=== PATIENT | male | born 1945 | race Caucasian/White ===

== ENCOUNTER → 2020-01-22 10:50 | Outpatient (BNVA) | payer MEDICARE, OTHER, SELFPAY | PROVIDERS: PCP Family Medicine; Referring Provider Family Medicine; Visit Provider Nurse Practitioner Gerontology | DX: N52.9 Male erectile dysfunction, unspecified (principal); N40.1 Benign prostatic hyperplasia with lower urinary tract symptoms; N13.8 Other obstructive and reflux uropathy | CPT/HCPCS: 81003; 99204; 99215 ==

== ENCOUNTER 2020-01-22 13:16 | Outpatient (REF) | payer MEDICARE, SELFPAY ==
[2020-01-22 14:04] LABS: Bilirubin Negative (Negative); Blood Negative (Negative); Clarity Clear (Clear); Glucose Negative (Negative); Ketones Negative (Negative); Leukocyte Esterase Negative (Negative); Nitrite Negative (Negative); Urobilinogen 0.2 EU/dL (Up TO 0.2)
== END 2020-01-22 13:36 ==
LOC: LBN 13:16
PROVIDERS: PCP Nurse Practitioner Acute Care; Visit Provider Nurse Practitioner Gerontology
DX: R31.9 Hematuria, unspecified (principal)
CPT/HCPCS: 81003

== ENCOUNTER → 2020-04-04 11:43 | Outpatient (BNVA) | payer MEDICARE, OTHER, SELFPAY | PROVIDERS: PCP Nurse Practitioner Acute Care; Referring Provider Nurse Practitioner Acute Care; Visit Provider Nurse Practitioner Gerontology | DX: N40.1 Benign prostatic hyperplasia with lower urinary tract symptoms (principal); N13.8 Other obstructive and reflux uropathy; N52.9 Male erectile dysfunction, unspecified; N40.2 Nodular prostate without lower urinary tract symptoms | CPT/HCPCS: 99213; 99442 ==

== ENCOUNTER → 2020-06-10 11:09 | Outpatient (BNVA) | payer MEDICARE, OTHER, SELFPAY | PROVIDERS: PCP Nurse Practitioner Acute Care; Referring Provider Nurse Practitioner Acute Care; Visit Provider Nurse Practitioner Gerontology | DX: N40.1 Benign prostatic hyperplasia with lower urinary tract symptoms (principal); N13.8 Other obstructive and reflux uropathy; N40.2 Nodular prostate without lower urinary tract symptoms; N52.9 Male erectile dysfunction, unspecified; I10 Essential (primary) hypertension | CPT/HCPCS: 99213 ==

== ENCOUNTER 2021-02-20 02:03 | Outpatient (CLI) | payer MEDICARE, OTHER, SELFPAY ==
--- NOTE | 2021-02-20 | DI.CT_ITS ---
EXAM: CT ABDOMEN PELVIS WO/W CLINICAL HISTORY: GROSS HEMATURIA,R31.0. TECHNIQUE: Imaging Protocol: Axial computed tomography images with coronal and sagittal reformatted images were created and reviewed CONTRAST MATERIAL: Intravenous: Omnipaque 100cc Oral: None COMPARISON: No exams were available for comparison FINDINGS: VISUALIZED LUNG BASES: Mild platelike atelectasis in the left lung base. No pleural effusions.. ABDOMEN: There is no ascites. LIVER: There is a small 6 millimeters cyst in the lateral aspect of the right hepatic lobe. No other significant focal hepatic findings. No dilatation of intrahepatic ducts. GALLBLADDER/BILIARY: There is a calcified gallstone in the lower gallbladder lumen measuring 1.6 by 1 .5 cm. There is no obvious gallbladder wall edema. The CBD is not dilated but there is a 6 by 4 by 7 millimeter calcification in the pancreatic head area a in the lower CBD region at its junction with the duodenal wall. Skull to determine if this is actually within the lower most CBD or adjacent to it. PANCREAS: Slight haziness the pancreatic head. Remainder of the pancreas appears unremarkable. Panc reatic duct is not dilated. There are no peripancreatic fluid collections. SPLEEN: Spleen is not enlarged. No obvious intrasplenic lesions. Splenic and portal veins are paten t. ADRENALS: There are no significant adrenal masses. KIDNEYS:No cysts evident. No solid renal masses. No calculi nor hydronephrosis.. ABDOMINAL AORTA: Abdominal aorta is not enlarged. However, there is arterial megaly of the left comm on iliac artery which exhibits a luminal diameter of 1.7 cm with no stenosis in either common iliac a rtery. External iliac arteries are patent as are the common femoral arteries. LYMPH NODES:There is no retroperitineal nor paraaortic adenopathy. ABDOMINAL WALL/GI: There is a left inguinal fat containing hernia. Does not contain bowel loops. No bowel obstruction. No bowel obstruction. PELVIS: GI: No evidence of appendicitis.No evidence of sigmoid diverticulitis. LYMPH NODES: There is no intrapelvic nor inguinal adenopathy. REPRODUCTIVE: Prostate enlarged. URINARY BLADDER: There is an ominous noncalcified mass in the right side of the urinary bladder which measures 3 centimetres AP by 2.3 cm wide by 2.2 cm craniocaudal. Consistent with probable neoplasm. The ipsilateral ureter is not dilated. OSSEOUS: No significant osseous lesions. IMPRESSION: 1. There is a concerning noncalcified neoplastic-appearing mass in the right side of the urinary blad alaina measuring approximately 3 x 2.3 x 2.2 cm. There is no extra vesicular extension a nor perivesicu lar lymphadenopathy and there is no adenopathy elsewhere in the abdomen and pelvis. No ascites. 2. No significant masses in the kidneys. No hydronephrosis. 3. Cholelithiasis. No evidence of acute cholecystitis. The CBD is not dilated but there is a 6 x 4 x 7 millimeter calcification at the level the pancreatic head in the vicinity of the CBD. It is diff icult to determine if this is actually with in the lower most CBD or within the immediately adjacent pancreatic head parenchyma. Correlation with appropriate blood work recommended. If clinically indicated MRCP/MRI can be performed. May add specificity. 4. There is a solitary small 6 millimeter benign intrahepatic cyst. RADIATION DOSE DELIVERED: 2,886.23mGy.cm Total DLP DATA REPOSITORY: All CT scans at this facility are submitted to the National Radiology Data Registry (NRDR) Dose Index Registry (DIR) with the [employer] (ACR). RADIATION OPTIMIZATION: All CT scans at this facility use at least one of these dose optimization te chniques: automated exposure control; mA and/or kV adjustment per patient size (includes targeted exa ms where dose is matched to clinical indication); or iterative reconstruction.
[2021-02-20] MEDS: Normal Saline - Diluent 50 ML VIAL IV ×2 (13:33→13:34)
[2021-02-20] MEDS: Omnipaque 350 MG/ML 100 ML BTL IJ (13:33)
== END 2021-02-20 02:23 ==
PROVIDERS: PCP Nurse Practitioner Acute Care; Visit Provider Nurse Practitioner Acute Care
DX: R31.0 Gross hematuria (principal); N32.89 Other specified disorders of bladder; K80.20 Calculus of gallbladder without cholecystitis without obstruction; K76.89 Other specified diseases of liver; K86.89 Other specified diseases of pancreas
CPT/HCPCS: 74178; J3490

== ENCOUNTER → 2021-02-24 14:47 | Outpatient (BNVA) | payer MEDICARE, OTHER, SELFPAY | PROVIDERS: PCP Nurse Practitioner Acute Care; Referring Provider Nurse Practitioner Acute Care; Visit Provider Nurse Practitioner Gerontology | DX: N40.3 Nodular prostate with lower urinary tract symptoms (principal); R39.15 Urgency of urination; R31.0 Gross hematuria; R35.1 Nocturia | CPT/HCPCS: 99215 ==

== ENCOUNTER 2021-02-28 02:45 | Outpatient (CLI) | payer MEDICARE, OTHER, SELFPAY ==
[2021-02-28 12:01] LABS: Source Nasal/Nares
[2021-02-28 16:48] LABS: COVID-19 PCR Negative (Negative)
== END 2021-02-28 02:46 | disposition home or self-care (01) ==
LOC: LBO 02:45
PROVIDERS: Urology; PCP Nurse Practitioner Acute Care; Visit Provider Nurse Practitioner Gerontology
DX: Z20.822 Contact with and (suspected) exposure to COVID-19 (principal)
CPT/HCPCS: 87635

== ENCOUNTER 2021-03-03 06:05 | Observation (INO) | payer MEDICARE, OTHER, SELFPAY ==
[2021-03-03] VITALS (9 sets, daily range): BP systolic 126–147; BP diastolic 73–87; PULSE 55–75; RESP 11–22; TEMP 35.8–36.8; O2SAT 95–99
--- NOTE | 2021-03-03 06:56 | HPE_ITS ---
Date of service: 03/03/21 Time of Service: 06:56 Assessment and Plan Assessment and plan (1) Bladder mass: Status: Acute Assessment and plan: For cystoscopy with TURBT. We will be prepared to keep him in the hospital overnight for continuous bladder irrigation. History of Present Illness History of Present Illness Chief Complaint: Bladder mass Narrative: Joo is 75-year-old male known to urology for his prior visits in relationship to his BPH, ED, and his abnormal prostate exam. His PCP reached out a few weeks ago about this individual having gross hematuria. Our recommendations were to have an abdominal pelvic CT with and without contrast. Patient is here today to discuss those results. Joo explains that he he approximately a month ago started to have gross hematuria. He notes that it was not bad but sometimes he has some brown urine. He notes that he is never had clots. He does state that approximately 2 weeks ago he had an episode of gross hematuria with every void on the weekend and said it was really bad. He notes that he can void and empty completely. He does have some LUTS with some frequency and urgency. He denies any weight loss. He does state he has lower pelvic discomfort but no skeletal pains. He also denies abnormal bleeding or bruising. Review of Systems Narrative: No fevers or chills No vision change or dysphasia No diabetes or thyroid No shortness of breath, cough or hemoptysis No chest pain No nausea, vomiting, hepatitis, ulcers, jaundice No seizures, strokes or peripheral neuropathy No bleeding disorders or anemia No gout [facility] Medical History Anxiety Arthritis Bladder mass Chronic pain Depression Essential hypertension Gynecomastia Hypertriglyceridemia Irregular heart beat Low back pain Osteoporosis Smoker Varicose veins of left lower extremity Vascular disorder Surgical History Arthroplasty of knee Hernia repair Quadracepsplasty Replacement of total knee joint Rotator Cuff Repair Vasectomy Vein Stripping Family History (Updated 04/06/17 @ 13:04 by Ellie Goff MD) Other ASCVD (arteriosclerotic cardiovascular disease) Bladder cancer Lung cancer Myocardial infarction Social History Smoking/Tobacco Use Status: Former Tobacco Use Smoking risk assessment performed?: Yes Drug use: Never Current gender identity: male Meds Home Medications and Allergies Allergies Allergy/AdvReac Type Severity Reaction Status Date / Time No Known Allergies Allergy Unverified 11/30/13 09:11 Home Medications Medication Instructions Recorded Confirmed Type ascorbic acid (vitamin C) [Vitamin 500 mg PO DAILY NS 04/06/17 03/03/21 History C] cholecalciferol (vitamin D3) 400 unit PO DAILY NS 04/06/17 03/03/21 History [Vitamin D3] multivitamin 1 ea PO DAILY NS 04/06/17 03/03/21 History sertraline 200 mg PO DAILY tab-cap NS 04/06/17 03/03/21 History trazodone 150 mg PO HS tab-cap NS 04/06/17 03/03/21 History triamcinolone acetonide 15 gm TOPICAL PRN PRN script NS 04/06/17 03/03/21 History vitamin E succinate 100 unit PO DAILY NS 04/06/17 03/03/21 History ammonium lactate 12 % topical cream 1 applic TP BID 12/20/19 02/24/21 History calcium carbonate 600 mg calcium 600 mg PO DAILY 12/20/19 03/03/21 History (1,500 mg) tablet cephalexin 500 mg capsule 500 mg PO DAILY cap 12/20/19 03/03/21 History ciclopirox 8 % topical solution 1 applic TP QHS 12/20/19 03/03/21 History econazole 1 % topical cream 1 applic TP BID 12/20/19 03/03/21 History efinaconazole 10 % topical 1 applic TP DAILY 12/20/19 03/03/21 History solution with applicator sildenafil 50 mg tablet 50 mg PO DAILY PRN 12/20/19 03/03/21 History vitamin B12 500 mcg-folic acid 400 1 tab PO DAILY 12/20/19 03/03/21 History mcg tablet prazosin 2 mg capsule 3 mg PO QHS cap 01/22/20 03/03/21 History acetaminophen 1,000 mg PO Q6H PRN 02/27/21 03/03/21 History ferrous sulfate [Iron (ferrous 325 mg PO DAILY 02/27/21 03/03/21 History sulfate)] Exam Const General: cooperative, comfortable and no acute distress Other: very talkative Neck Neck: supple Resp Effort & Inspection: normal respiratory effort Auscultation: clear to auscultation bilaterally Cardio Rate: regular rate Rhythm: regular rhythm GI Inspection: normal to inspection Palpation: soft Neuro General: patient alert, patient awake and patient oriented x3 Results Last Vital Signs Temp 36.8 C 03/03/21 06:21 Pulse 75 03/03/21 06:21 Resp 16 03/03/21 06:21 BP 126/73 03/03/21 06:21 Pulse Ox 95 03/03/21 06:21 COVID-19 Screening Have you, or household traveled for leisure in last 14 days?: No Had IN PERSON contact w/suspected or confirmed C-19 person: No
[2021-03-03] MEDS: Lactated Ringers 1,000 ML 80 ML IV ×3 (07:05→21:12)
[2021-03-03] MEDS: ceFAZolin 2 GM/50 ML BAG IVPB (07:31)
--- NOTE | 2021-03-03 07:59 | BLADDER_PTH ---
PATIENT: Joo Bradley LOC: U#:[id number] AGE/SX: 75/M [facility]: Jona Barker MD : 1945 BED: A DIS: 03/04/2021 SPEC #: [id number] RECD: 03/03/21 12:34 STATUS: SOUJonah REQ #: [id number] VINICIO: 03/03/21 07:[address]: Jona Barker DEPT: Surgical Specimen RECD BY: Marleni Zuniga ENTERED: 03/03/21 12:34 SP TYPE: Bladder OTHR DR: Sohail Tan Tissues: 1 - BLADDER CURRETTINGS Procedures: GROSS AND MICRO LEVEL 5 Comments: [id number]
[2021-03-03] MEDS: Lidocaine 2% Jelly 11 ML SYR (08:06)
--- NOTE | 2021-03-03 08:27 | W.PM.OP ---
Date of service: 03/03/21 Time of Service: 08:28 Operative Note Operative Note DATE OF PROCEDURE: 03/03/21 PRE-OP DIAGNOSIS: Bladder mass POST-OP DIAGNOSIS: same PROCEDURE: cystoscopy, TURBT (2 to 5 cm) SURGEON: Jona Barker ANESTHESIA TYPE: General:No Airway Refer to Anesthesia Record ESTIMATED BLOOD LOSS: 100 PATHOLOGY: other (bladder tumor) COMPLICATIONS: None Patient was transported to: PACU Patient's condition: stable Implants: 22 Indonesian Hematuria catheter with 30 cc in balloon Indications: This is a 75-year-old gentleman who presented with gross hematuria. He was evaluated with a CT urogram which demonstrated a mass within the bladder. He presents for transurethral resection of a bladder mass. Findings: Papillary lesion measuring @ 4 cm on right anterior bladder wall Procedure Description: He was brought to the operating room on 03/03/2021. After successful induction of general anesthesia without intubation, he was placed in the dorsal lithotomy position. His genitalia was prepped and draped sterilely. He was given preoperative IV antibiotics. 2% Xylocaine jelly was instilled into the urethra to act as a local anesthetic. A 26 Indonesian resectoscope sheath was passed through the urethra into the bladder. We used a visual obturator to inspect the urethral and prostatic mucosa. The pendulous, bulbous and membranous urethra all appeared normal with no strictures. The prostatic urethra showed lateral lobe enlargement but no papillary lesions on the mucosa. The bladder neck was entered and the bladder was then inspected using the 30 degree lens. Both ureteral orifices appeared normal in configuration and location. Clear urine was seen coming from each side. On the right anterior bladder wall, a papillary lesion was seen. The lesion measured approximately 4 cm in largest dimension. No additional lesions were identified. We then used the [employer] resectoscope and bipolar cautery to resect the visible tumor. All resected tissue was evacuated and sent to pathology for permanent section. The base of the resection site was then cauterized using coagulation current. At the completion of the resection, no active arterial bleeding was identified. The bladder was filled with irrigant. The resectoscope was removed. A 22 Indonesian hematuria catheter was then passed through the urethra into the bladder. The catheter balloon was inflated with 30 cc of sterile water. The catheter was hooked to gravity drainage. Continuous bladder irrigation with saline was begun. Bimanual exam under anesthesia showed a mobile bladder with no pelvic wall fixation. He tolerated this procedure well. He was taken to the recovery room in stable condition.
--- NOTE | 2021-03-03 11:35 | NUR.NOTE ---
Nursing Note: Pt A&Ox3, VSS, admitted to [address] with irrigation running. Pt denies pain. Oriented to room, call ramirez system. alarms on.
[2021-03-03] MEDS: ceFAZolin 1 GM/50 ML BAG IVPB ×2 (14:34→21:52)
[2021-03-03] MEDS: Acetaminophen 325 MG TAB 650 MG PO (14:39)
--- NOTE | 2021-03-03 14:43 | CHAPLAIN ---
Joo was resting in bed. He's from [place] and this is his first time in [facility]. Usually he goes [facility] or the [place]. He said he has received good care here. He has a twin brother, who lives in [facility], has been treated recently for bladder cancer, and Joo said it will take a few days to get the test results back. Joo lives close to her sister and has been helping her out as she's in treatment for cancer. Joo was very pleasant and talked about graduating from [employer] with a small class.
[2021-03-03] MEDS: Docusate Sodium 100 MG CAP PO (20:46)
[2021-03-03] MEDS: Prazosin 1 MG CAP 3 MG PO (21:11)
[2021-03-03] MEDS: traZODone 50 MG TAB 150 MG PO (21:12)
[2021-03-04 04:00] VITALS: BP 118/74; PULSE 56; RESP 16; TEMP 36.9; O2SAT 96
--- NOTE | 2021-03-04 07:32 | W.PM.DS.N ---
Date of service: 03/04/21 Time of Service: 07:32 DS: Diagnosis Discharge Diagnosis (1) Bladder mass: Status: Acute (2) S/P bladder tumor excision with fulguration: Status: Acute Discharge Plan Disposition Patient Disposition: HOME Condition: Stable Discharge Details Reason For Visit: BLADDER MASS Admit Date/Time: 03/03/21 06:05 Admit Provider: Jona Barker Attending Provider: Jona Barker Primary Care Provider: Sohail Tan Hospital Course Hospital Course: The patient was admitted on 03/03/2021. He was brought to the operating room where he underwent cystoscopy. A papillary mass was found on the right side of the bladder. He underwent transurethral resection of the visible lesion. Because of the depth of the resection, we elected not to place mitomycin-C into his bladder in the perioperative time. He was maintained in the hospital overnight with continuous bladder irrigation. He required hand irrigation on one occasion. For the remainder of the time, his irrigant was clear and flowed freely. On postoperative day #1, he was comfortable and afebrile. His lab work including his renal function and hemoglobin were stable. His bladder irrigation was discontinued and he is being discharged to home with a Pereyra catheter in place. He will follow-up later this week for catheter removal and in 2 weeks to review his surgical pathology. Home Meds and New Rx's Prescriptions: No Action prazosin [Minipress] 2 mg capsule 3 mg PO QHS RF: 0 sertraline 100 MG tablet 200 mg PO DAILY RF: 0 triamcinolone acetonide 15 GM cream 15 gm Topical PRN PRNRF: 0 trazodone 150 MG tablet 150 mg PO HS RF: 0 ascorbic acid (vitamin C) [Vitamin C] 500 MG capsule, extended release 500 mg PO DAILY RF: 0 multivitamin 1 EACH capsule 1 ea PO DAILY RF: 0 cholecalciferol (vitamin D3) [Vitamin D3] 400 UNIT capsule 400 unit PO DAILY RF: 0 vitamin E succinate 100 UNIT tablet 100 unit PO DAILY RF: 0 ammonium lactate 12 % cream 1 applic TP BID RF: 0 calcium carbonate [Calcium 600] 600 mg calcium (1,500 mg) tablet 600 mg PO DAILY RF: 0 cephalexin 500 mg capsule 500 mg PO DAILY RF: 0 ciclopirox 8 % solution 1 applic TP QHS RF: 0 econazole 1 % cream 1 applic TP BID RF: 0 Jublia 10 % solution with applicator 1 applic TP DAILY RF: 0 sildenafil [Viagra] 50 mg tablet 50 mg PO DAILY PRNRF: 0 vitamin S32-ogfen acid 500-400 mcg tablet 1 tab PO DAILY RF: 0 ferrous sulfate [Iron (ferrous sulfate)] 325 mg (65 mg iron) Tablet 325 mg PO DAILY RF: 0 acetaminophen 500 mg Tablet 1,000 mg PO Q6H PRNRF: 0 Discharge Instructions Instructions: Pereyra Catheter Placement and Care (DC), Urinary Leg Bag (GEN), Transurethral Prostatectomy (DC) Additional Instructions: Pereyra to leg bag with catheter plug to irrigation port Follow-up or Wednesday for catheter removal Follow-up appointment with me in 2 weeks to review surgical pathology Okay to shower No new medications-May take [id number] Tylenol and ibuprofen for discomfort Stand Alone Forms: Nursing Discharge Form Referrals: Jona Barker MD [ [facility] STAFF PHYSICIAN] - 03/07/21 8:00 am (Follow-up appointment with me in 2 weeks to review surgical pathology will be 03/21/2021 @ 1100am) Activity:: No lifting over 20 pounds Equipment/Supplies:: Pereyra to leg bag Diet:: As Tolerated Discharge Orders Discharge Orders: Discharge Order (Routine); Ordered 03/04/21 Ordered By: Jona Barker Discharge Data Discharge Date/Time-TO BE ENTERED AT DEPARTURE: 03/04/21 09:47 DS: Summary Time Spent with Patient providing and/or coordinating discharge services: Less than 30 minutes Status at Discharge Functional status at discharge: independent ambulation Overall status at discharge: patient is back to baseline Mental Status: mental status grossly normal Speech and Movement: speech and movement normal Mood: congruent mood Affect: normal affect Exam Narrative Exam Narrative: On the morning of urgent, he looked well. He did not appear septic or toxic His vital signs are documented elsewhere His lungs are clear Cardiac exam shows a regular rate and rhythm His abdomen is soft with no masses His urine is clear in his catheter tubing He is awake and alert Psych Mental Status: mental status grossly normal Speech and Movement: speech and movement normal Mood: congruent mood Affect: normal affect DS: Data Vitals/I&O Vitals and I&O: Vital Signs Temperature 36.9 C 03/04/21 04:00 Temperature Source Temporal Artery Scan 03/04/21 04:00 Pulse 56 L 04/06/21 04:00 Pulse Rhythm Regular 03/04/21 04:44 Respiratory Rate 16 03/04/21 04:00 Respiratory Effort Non-Labored 03/04/21 04:44 Respiratory Depth Normal 03/04/21 04:44 Respiratory Pattern Normal 03/04/21 04:44 Blood Pressure 118/74 03/04/21 04:00 Pulse Oximetry 96 03/04/21 04:00 Respiratory End-tidal CO2 36 03/03/21 09:00 Oxygen Delivery Method Room Air 03/04/21 04:00 Oxygen Flow Rate 0 03/04/21 04:00 Pain Level 0 03/04/21 04:00 Intake & Output 03/03/21 03/03/21 03/04/21 11:59 23:59 11:59 Intake Total 595.333 / 2096.000 1500.667 / 2096.000 816 / 816 Balance 595.333 / 2096.000 1500.667 / 2096.000 816 / 816 Weight 91.6 kg Intake: IV 595.333 / 0728.939 8491.667 / 1756.000 816 / 816 Oral 340 / 340 Other: Urine Color Pale Pale Urine Appearance Clear Hematuria Clear Comment Drainage clear, no clots at this time. fluid in catheter is clear, light pink in the collection bucket. Emesis Description None Data Completed and Pending Labs on day of discharge: Labs from last 24 hours 03/04/21 03/04/21 05:35 05:35 WBC Pending RBC Pending Hgb Pending Hct Pending MCV Pending MCH Pending MCHC Pending RDW Pending Plt Count Pending MPV Pending Sodium Pending Potassium Pending Chloride Pending Carbon Dioxide Pending Anion Gap Pending BUN Pending Creatinine Pending Estimated GFR/1.73 m2 Pending Glucose Pending Calcium Pending PFSH Medical History Anxiety Arthritis Bladder mass Chronic pain Depression Essential hypertension Gynecomastia Hypertriglyceridemia Irregular heart beat Low back pain Osteoporosis Smoker Varicose veins of left lower extremity Vascular disorder Surgical History (Updated 03/04/21 @ 07:33 by Jona Barker MD) Arthroplasty of knee Hernia repair Quadracepsplasty Replacement of total knee joint Rotator Cuff Repair S/P bladder tumor excision with fulguration Vasectomy Vein Stripping Family History Other ASCVD (arteriosclerotic cardiovascular disease) Bladder cancer Lung cancer Myocardial infarction Social History Smoking/Tobacco Use Status: Former Tobacco Use Smoking risk assessment performed?: Yes Drug use: Never Current gender identity: male
[2021-03-04 07:47] VITALS: BP 122/70; PULSE 55; RESP 18; TEMP 36.6; O2SAT 96
[2021-03-04 07:48] LABS: HCT 39.1 % (40.0-50.0); HGB 13.2 g/dL (13.5-17.5); MCH 31.7 pg (27.0-33.0); MCHC 33.8 % (32.0-36.0); MCV 93.8 fL (80-95); MPV 10.5 fL (8.0-11.0); Platelet Count 161 10^3/uL (130-400); RBC 4.17 10^6/uL (4.36-5.78); RDW 13.1 % (11.8-14.1); RDW-SD 44.9 fL; WBC 8.56 10^3/uL (4.4-10.8)
[2021-03-04 08:08] LABS: Anion Gap 6.6 mmol/L (3-11); BUN 20 mg/dL (7-18); CO2 29.4 mmol/L (21.0-32.0); CREATININE 0.9 mg/dL (0.70-1.30); Calcium 9.1 mg/dL (8.5-10.1); Chloride 107 mmol/L (98-107); Glucose 102 mg/dL (74-106); Potassium 4.1 mmol/L (3.5-5.1); Sodium 143 mmol/L (136-145)
[2021-03-04] MEDS: Calcium Carbonate 1.5 GM TAB PO (08:53)
[2021-03-04] MEDS: Cholecalciferol (Vitamin D3) 400 UNIT TAB PO (08:53)
[2021-03-04] MEDS: Ascorbic Acid 500 MG TAB PO (08:53)
[2021-03-04] MEDS: Folic Acid 1 MG TAB 0.5 MG PO (08:53)
[2021-03-04] MEDS: Acetaminophen 325 MG TAB 650 MG PO (08:53)
[2021-03-04] MEDS: Multivitamin TAB 1 TAB PO (08:53)
[2021-03-04] MEDS: Sertraline 50 MG TAB 200 MG PO (08:53)
[2021-03-04] MEDS: Docusate Sodium 100 MG CAP PO (08:54)
[2021-03-04] MEDS: Cyanocobalamin 500 MCG TAB PO (08:54)
--- NOTE | 2021-03-04 10:31 | CMPROGNOTE_ITS ---
- If Service Date Differs Date of service: 03/04/21 Time of Service: 10:31 Care Management Progress Note Joo will be discharged home to his home in [place] with a lugo catheter with no new services. He will follow up with Urology later this week to have the lugo removed and again in 2 weeks to review surgical/pathology findings. He will also follow up with his PCP and discharge plan of care. Joo was discharged before was able to meet with him with plans to drive himself home.
== END 2021-03-04 09:47 | disposition home or self-care (01) ==
LOC: PDS 09:33 → MS 09:34
PROVIDERS: Admitting Provider Urology; PCP Nurse Practitioner Acute Care; Visit Provider Urology
PROC: 0TBB8ZZ Excision of Bladder, Via Natural or Artificial Opening Endoscopic (ICD-10-PCS; CPT 52235; principal; 2021-03-03 07:30)
DX: C67.9 Malignant neoplasm of bladder, unspecified (principal); N32.89 Other specified disorders of bladder; R31.0 Gross hematuria; F41.9 Anxiety disorder, unspecified; F32.9 Major depressive disorder, single episode, unspecified; I10 Essential (primary) hypertension; E78.1 Pure hyperglyceridemia; M54.5 Low back pain; M81.0 Age-related osteoporosis without current pathological fracture; F17.210 Nicotine dependence, cigarettes, uncomplicated; I83.92 Asymptomatic varicose veins of left lower extremity
CPT/HCPCS: 52235; 36415; 80048; 85027; 99238; NC; 88307; G0378; J0690; J1100; J1885; J2405; J2704; J3490

== ENCOUNTER → 2021-03-21 10:38 | Outpatient (BNVA) | payer MEDICARE, OTHER, SELFPAY | PROVIDERS: PCP Nurse Practitioner Acute Care; Referring Provider Nurse Practitioner Acute Care; Visit Provider Urology | DX: C67.9 Malignant neoplasm of bladder, unspecified (principal) | CPT/HCPCS: 99213 ==

== ENCOUNTER → 2021-04-17 08:39 | Outpatient (BNVA) | payer MEDICARE, OTHER, SELFPAY | PROVIDERS: PCP Nurse Practitioner Acute Care; Referring Provider Nurse Practitioner Acute Care; Visit Provider Nurse Practitioner Gerontology | DX: C67.9 Malignant neoplasm of bladder, unspecified (principal) | CPT/HCPCS: 51720; 81003; J9030 ==

== ENCOUNTER → 2021-04-24 08:45 | Outpatient (BNVA) | payer MEDICARE, OTHER, SELFPAY | PROVIDERS: PCP Nurse Practitioner Acute Care; Referring Provider Nurse Practitioner Acute Care; Visit Provider Nurse Practitioner Gerontology | DX: C67.9 Malignant neoplasm of bladder, unspecified (principal); N39.0 Urinary tract infection, site not specified | CPT/HCPCS: 81003 ==

== ENCOUNTER 2021-04-24 12:07 | Outpatient (REF) | payer MEDICARE, OTHER, SELFPAY | END 2021-04-24 12:08 | disposition home or self-care (01) | LOC: LBN 12:07 | PROVIDERS: PCP Nurse Practitioner Acute Care; Visit Provider Nurse Practitioner Gerontology | DX: N39.0 Urinary tract infection, site not specified (principal) | CPT/HCPCS: 87077; 87086 ==

== ENCOUNTER → 2021-05-01 08:37 | Outpatient (BNVA) | payer MEDICARE, OTHER, SELFPAY | PROVIDERS: PCP Nurse Practitioner Acute Care; Referring Provider Nurse Practitioner Acute Care; Visit Provider Nurse Practitioner Gerontology | DX: C67.9 Malignant neoplasm of bladder, unspecified (principal); Z51.11 Encounter for antineoplastic chemotherapy | CPT/HCPCS: 51720; 81003; J9030 ==

== ENCOUNTER → 2021-05-08 12:47 | Outpatient (BNVA) | payer MEDICARE, OTHER, SELFPAY | PROVIDERS: PCP Nurse Practitioner Acute Care; Referring Provider Nurse Practitioner Acute Care; Visit Provider Nurse Practitioner Gerontology | DX: C67.9 Malignant neoplasm of bladder, unspecified (principal); Z51.11 Encounter for antineoplastic chemotherapy | CPT/HCPCS: 51720; 81003; J9030 ==

== ENCOUNTER → 2021-05-15 09:46 | Outpatient (BNVA) | payer MEDICARE, OTHER, SELFPAY | PROVIDERS: PCP Nurse Practitioner Acute Care; Referring Provider Nurse Practitioner Acute Care; Visit Provider Nurse Practitioner Gerontology | DX: C67.9 Malignant neoplasm of bladder, unspecified (principal); Z51.11 Encounter for antineoplastic chemotherapy | CPT/HCPCS: 51720; 81003; J9030 ==

== ENCOUNTER → 2021-05-22 09:43 | Outpatient (BNVA) | payer MEDICARE, OTHER, SELFPAY | PROVIDERS: PCP Nurse Practitioner Acute Care; Referring Provider Nurse Practitioner Acute Care; Visit Provider Nurse Practitioner Gerontology | DX: C67.9 Malignant neoplasm of bladder, unspecified (principal); Z51.11 Encounter for antineoplastic chemotherapy | CPT/HCPCS: 51720; 81003; J9030 ==

== ENCOUNTER → 2021-05-29 08:42 | Outpatient (BNVA) | payer MEDICARE, OTHER, SELFPAY | PROVIDERS: PCP Nurse Practitioner Acute Care; Referring Provider Nurse Practitioner Acute Care; Visit Provider Nurse Practitioner Gerontology | DX: C67.9 Malignant neoplasm of bladder, unspecified (principal); Z51.11 Encounter for antineoplastic chemotherapy | CPT/HCPCS: 51720; 81003; J9030 ==

== ENCOUNTER → 2021-07-22 12:41 | Outpatient (BNVA) | payer MEDICARE, OTHER, SELFPAY | PROVIDERS: PCP Family Medicine; Referring Provider Nurse Practitioner Acute Care; Visit Provider Urology | DX: C67.9 Malignant neoplasm of bladder, unspecified (principal); Z98.890 Other specified postprocedural states | CPT/HCPCS: 52000; 81003; 99213 ==

== ENCOUNTER → 2021-09-02 09:06 | Outpatient (BNVA) | payer MEDICARE, OTHER, SELFPAY | PROVIDERS: PCP Nurse Practitioner Acute Care; Referring Provider Family Medicine; Visit Provider Nurse Practitioner Gerontology | DX: C67.9 Malignant neoplasm of bladder, unspecified (principal); Z51.11 Encounter for antineoplastic chemotherapy | CPT/HCPCS: 51720; 81003; J9030 ==

== ENCOUNTER → 2021-11-06 10:26 | Outpatient (BNVA) | payer MEDICARE, OTHER, SELFPAY | PROVIDERS: PCP Nurse Practitioner Acute Care; Referring Provider Family Medicine; Visit Provider Urology | DX: C67.9 Malignant neoplasm of bladder, unspecified (principal) | CPT/HCPCS: 52000; 81003 ==

== ENCOUNTER → 2021-12-18 08:41 | Outpatient (BNVA) | payer MEDICARE, OTHER, SELFPAY | PROVIDERS: PCP Nurse Practitioner Acute Care; Referring Provider Nurse Practitioner Acute Care; Visit Provider Nurse Practitioner Gerontology | DX: C67.9 Malignant neoplasm of bladder, unspecified (principal) | CPT/HCPCS: 51720; J9030 ==

== ENCOUNTER → 2022-01-30 08:42 | Outpatient (BNVA) | payer MEDICARE, OTHER, SELFPAY | PROVIDERS: PCP Nurse Practitioner Acute Care; Referring Provider Nurse Practitioner Acute Care; Visit Provider Urology | DX: C67.9 Malignant neoplasm of bladder, unspecified (principal) | CPT/HCPCS: 52000; 81003 ==

== ENCOUNTER → 2022-03-24 08:40 | Outpatient (BNVA) | payer MEDICARE, OTHER, SELFPAY | PROVIDERS: PCP Nurse Practitioner Acute Care; Referring Provider Nurse Practitioner Acute Care; Visit Provider Nurse Practitioner Gerontology | DX: C67.9 Malignant neoplasm of bladder, unspecified (principal) | CPT/HCPCS: 51720; 81003; J9030 ==

== ENCOUNTER → 2022-04-28 08:31 | Outpatient (BNVA) | payer MEDICARE, OTHER, SELFPAY | PROVIDERS: PCP Nurse Practitioner Acute Care; Referring Provider Nurse Practitioner Acute Care; Visit Provider Urology | DX: C67.9 Malignant neoplasm of bladder, unspecified (principal) | CPT/HCPCS: 52000; 81003 ==

== ENCOUNTER → 2022-11-17 10:36 | Outpatient (BNVA) | payer MEDICARE, OTHER, SELFPAY | PROVIDERS: PCP Nurse Practitioner Acute Care; Referring Provider Nurse Practitioner Acute Care; Visit Provider Urology | DX: Z08 Encounter for follow-up examination after completed treatment for malignant neoplasm (principal); Z85.51 Personal history of malignant neoplasm of bladder; N52.9 Male erectile dysfunction, unspecified; N40.1 Benign prostatic hyperplasia with lower urinary tract symptoms; N13.8 Other obstructive and reflux uropathy | CPT/HCPCS: 52000; 81003; 99213 ==

== ENCOUNTER → 2023-05-18 08:30 | Outpatient (BNVA) | payer MEDICARE, OTHER, SELFPAY | PROVIDERS: PCP Nurse Practitioner Acute Care; Visit Provider Urology | DX: Z08 Encounter for follow-up examination after completed treatment for malignant neoplasm (principal); Z85.51 Personal history of malignant neoplasm of bladder | CPT/HCPCS: 52000; 81003 ==

== ENCOUNTER → 2024-05-16 08:30 | Outpatient (BNVA) | payer MEDICARE, SELFPAY | PROVIDERS: PCP Nurse Practitioner Acute Care; Referring Provider Nurse Practitioner Acute Care; Visit Provider Urology | DX: C67.9 Malignant neoplasm of bladder, unspecified (principal); N40.1 Benign prostatic hyperplasia with lower urinary tract symptoms; N13.8 Other obstructive and reflux uropathy | CPT/HCPCS: 52000 ==

== ENCOUNTER 2024-07-13 07:50 | Day surgery (SDC) | payer MEDICARE, SELFPAY ==
[2024-07-13 08:50] VITALS: BP 118/69; PULSE 55; RESP 16; TEMP 36.3; O2SAT 97
[2024-07-13] MEDS: Lactated Ringers 1,000 ML 80 ML IV (08:53)
--- NOTE | 2024-07-13 10:08 | W.ANESPRE ---
General Info Date of Service Date Performed: 07/13/24 Height: 6 ft 2 in Weight: 83 kg Body Mass Index (BMI): 23.5 Surgical Procedure: Operation Date: 07/13/24 10:25 Proposed Procedure Side Surgeon p Cystoscopy, Transurethral Resection Bladder Tumor Jona Barker MD Meds Allergies and Home Medications Allergies Allergy/AdvReac Type Severity Reaction Status Date / Time No Known Allergies Allergy Verified 07/13/24 09:50 Home Medication ?Medication ?Instructions ?Recorded Vitamin C 500 mg capsule,extended 500 mg PO DAILY 04/06/17 release (ascorbic acid (vitamin C)) Vitamin D3 10 mcg (400 unit) 400 unit PO DAILY 04/06/17 capsule (cholecalciferol (vitamin D3)) multivitamin 1 ea PO DAILY 04/06/17 sertraline 100 mg tablet 200 mg PO DAILY 04/06/17 trazodone 150 mg tablet 150 mg PO HS 04/06/17 triamcinolone acetonide 0.1 % 15 gm topical PRN PRN 04/06/17 topical cream vitamin E succinate 67 mg (100 100 unit PO DAILY 04/06/17 unit) tablet ammonium lactate 12 % topical cream 1 applic topical BID 12/20/19 calcium carbonate (Calcium 600) 600 mg PO DAILY 12/20/19 ciclopirox 8 % topical solution 1 applic topical QHS 12/20/19 econazole 1 % topical cream 1 applic topical BID 12/20/19 efinaconazole 10 % topical 1 applic topical DAILY 12/20/19 solution with applicator (Jublia) vitamin B12 500 mcg-folic acid 400 1 tab PO DAILY 12/20/19 mcg tablet prazosin 2 mg capsule (Minipress) 3 mg PO QHS 01/22/20 acetaminophen 500 mg tablet 1,000 mg PO Q6H PRN 02/27/21 ferrous sulfate 325 mg (65 mg 325 mg PO DAILY 02/27/21 iron) tablet (Iron (ferrous sulfate)) cyclobenzaprine 5 mg tablet 5 mg PO QHS 07/22/23 dextroamphetamine-amphetamine ER 10 mg PO DAILY 07/22/23 10 mg 24hr capsule,extend release gabapentin 400 mg capsule 400 mg PO TID 07/22/23 sildenafil 50 mg tablet 50 mg PO DAILY PRN 07/22/23 Current Visit Medications: Current Medications Generic Name Dose Route Start Last Admin Trade Name Freq PRN Reason Stop Dose Admin Ringer's Solution 1,000 mls @ 80 mls/hr 07/13/24 06:00 07/13/24 08:53 IV 08/11/24 23:59 80 mls/hr INFUSION MIRIAM Administration Cefazolin Sodium/Dextrose 2 gm in 50 mls @ 100 mls/hr 07/13/24 06:00 Ancef Duplex IVPB 07/13/24 16:00 PREOP MIRIAM IV Miscellaneous Supplies 1 each 07/13/24 06:00 Iv Access IV 08/11/24 23:59 DIRECTED MIRIAM Sodium Chloride 0 ml 07/13/24 06:00 Normal Saline Flush 10 Ml Syr IV 08/11/24 23:59 PRN PRN Sodium Chloride 0 ml 07/13/24 06:00 Normal Saline 10 Ml Vial IJ 08/11/24 23:59 DIRECTED PRN Sterile Water 0 ml 07/13/24 06:00 Water,Injection,Sterile 10 Ml Vial IJ 08/11/24 23:59 DIRECTED PRN PFSH Active Problems Active Problems: Problem Status Onset Code Bladder cancer Acute C67.9 BPH w urinary obs/LUTS Acute N40.1, N13.8 Prostate nodule Acute N40.2 Erectile dysfunction Acute N52.9 Medical History Medical History Osteoporosis Arthritis Gynecomastia Vascular disorder Irregular heart beat Essential hypertension Hypertriglyceridemia Smoker Varicose veins of left lower extremity Depression Anxiety Chronic pain Low back pain Surgical History Surgical History S/P bladder tumor excision with fulguration Vein Stripping Vasectomy Replacement of total knee joint Rotator Cuff Repair Quadracepsplasty Hernia repair Arthroplasty of knee Tobacco Smoking/Tobacco Use Status: Former Tobacco Use Alcohol Alcohol Intake: never Substance Use Substance use: Never Substance use type: does not use Vital Signs and Lab Results Vital Signs Most Recent Vital Signs in EMR: Most Recent Vital Signs Temp Pulse Resp BP Pulse Ox 36.3 C L 55 L 16 118/69 97 07/13/24 08:50 07/13/24 08:50 07/13/24 08:50 07/13/24 08:50 07/13/24 08:50 Lab Results Blood Type / Crossmatch: No Data to Display Complete Blood Count: No Data to Display Complete Metabolic Panel: No Data to Display Liver Function Panel: No Data to Display Coagulation Panel: No Data to Display Cardiac Panel: No Data to Display Arterial Blood Gas: No Data to Display Venous Blood Gas: No Data to Display Pancreas Panel: No Data to Display Thyroid Panel: No Data to Display Infectious Disease: No Data to Display Blood Cultures: No Data to Display Toxicology Panel: No Data to Display Anesthesia Assessment and Plan Anesthesia History Personal History: No History of Anesthesia Complications Family History: No Family History of Anesthesia Complications Exercise Tolerance Exercise Tolerance: Metabolic Equivalents>4 Pertinent Negatives Pertinent Negatives: No Major Cardiovascular Symptoms or Complaints and No Major Pulmonary Symptoms or Complaints Cardiac & Pulmonary Exam Cardiac Exam: Normal S1/S2 Heart Sounds Pulmonary Exam: Clear Bilateral Breath Sounds Implantable Cardiac Device Does patient have a Pacemaker or an ICD?: No Airway Exam Known Difficult Airway: No Mallampati Class: 2 Mouth Opening: Normal (> 3cm) Thyromental Distance: Greater than 3 cm Neck Range of Motion: Full ROM Neck Circumference: Normal Teeth Condition: Normal Dentition (bottom teeth only) and Removable Dentures/Plates Upper ASA Classification ASA Score: ASA 2 Emergency Case?: No NPO Status NPO Status: NPO Clears >2 hours, Solids >8 hours Anesthesia Plan Resuscitation Status: Full Code Anesthesia Technique: General Anesthesia Airway Planned: Natural Airway Monitors Used: Standard Monitors
[2024-07-13 10:15] VITALS: BMI 23.5
--- NOTE | 2024-07-13 10:29 | W.PM.HP.N ---
Date of service: 07/13/24 Time of Service: 10:29 Assessment and Plan Assessment and plan (1) Bladder cancer: Status: Acute History of Present Illness History of Present Illness Chief Complaint: Bladder cancer Narrative: This is a 78-year-old gentleman who has a history of high-grade, noninvasive urothelial cell carcinoma of the bladder. He has been treated with transurethral resections followed by an induction series of intravesical BCG. On his most recent surveillance cystoscopy, we identified an area of recurrence on the right posterior bladder wall and a second area of concern at the bladder neck. He presents for transurethral resection of these areas. Review of Systems Narrative: No fevers or chills No vision change or dysphasia No diabetes or thyroid dysfunction No shortness of breath, cough or hemoptysis No chest pain. Hx irregular heart rate No nausea, vomiting, hepatitis, ulcers, jaundice Radiculopathy to arms/hands. No seizures or strokes No bleeding disorders or anemia Chronic back pain. No gout PFSH All Active Problems Bladder cancer (Acute) BPH w urinary obs/LUTS (Acute) Prostate nodule (Acute) Erectile dysfunction (Acute) Medical History Osteoporosis Arthritis Gynecomastia Vascular disorder Irregular heart beat Essential hypertension Hypertriglyceridemia Smoker Varicose veins of left lower extremity Depression Anxiety Chronic pain Low back pain Surgical History S/P bladder tumor excision with fulguration Vein Stripping Vasectomy Replacement of total knee joint Rotator Cuff Repair Quadracepsplasty Hernia repair Arthroplasty of knee Family History Other ASCVD (arteriosclerotic cardiovascular disease) Bladder cancer Lung cancer Myocardial infarction Social History Smoking/Tobacco Use Status: Former Tobacco Use Quit Date: 11/29/96 Smoking risk assessment performed?: Yes Alcohol Intake: never Drug use: Never Substance use type: does not use Housing: house Current gender identity: male Additional Social history: UTAP Meds Allergies and Home Medications Allergies Allergy/AdvReac Type Severity Reaction Status Date / Time No Known Allergies Allergy Verified 07/13/24 09:50 Home Medications ?Medication ?Instructions ?Recorded ?Confirmed ?Type Vitamin C 500 mg capsule,extended 500 mg PO DAILY 04/06/17 07/13/24 History release (ascorbic acid (vitamin C)) Vitamin D3 10 mcg (400 unit) 400 unit PO DAILY 04/06/17 07/13/24 History capsule (cholecalciferol (vitamin D3)) multivitamin 1 ea PO DAILY 04/06/17 07/13/24 History sertraline 100 mg tablet 200 mg PO DAILY 04/06/17 07/13/24 History trazodone 150 mg tablet 150 mg PO HS 04/06/17 07/13/24 History triamcinolone acetonide 0.1 % 15 gm topical PRN PRN 04/06/17 07/13/24 History topical cream vitamin E succinate 67 mg (100 100 unit PO DAILY 04/06/17 07/13/24 History unit) tablet ammonium lactate 12 % topical cream 1 applic topical BID 12/20/19 07/13/24 History calcium carbonate (Calcium 600) 600 mg PO DAILY 12/20/19 07/13/24 History ciclopirox 8 % topical solution 1 applic topical QHS 12/20/19 07/13/24 History econazole 1 % topical cream 1 applic topical BID 12/20/19 07/13/24 History efinaconazole 10 % topical 1 applic topical DAILY 12/20/19 07/13/24 History solution with applicator (Jublia) vitamin B12 500 mcg-folic acid 400 1 tab PO DAILY 12/20/19 07/12/24 History mcg tablet prazosin 2 mg capsule (Minipress) 3 mg PO QHS 01/22/20 07/13/24 History acetaminophen 500 mg tablet 1,000 mg PO Q6H PRN 02/27/21 07/13/24 History ferrous sulfate 325 mg (65 mg 325 mg PO DAILY 02/27/21 07/13/24 History iron) tablet (Iron (ferrous sulfate)) cyclobenzaprine 5 mg tablet 5 mg PO QHS 07/22/23 07/13/24 History dextroamphetamine-amphetamine ER 10 mg PO DAILY 07/22/23 07/13/24 History 10 mg 24hr capsule,extend release gabapentin 400 mg capsule 400 mg PO TID 07/22/23 07/13/24 History sildenafil 50 mg tablet 50 mg PO DAILY PRN 07/22/23 07/13/24 History Exam Const General: cooperative and no acute distress Neck Neck: supple Resp Effort & Inspection: normal respiratory effort Auscultation: clear to auscultation bilaterally Cardio Rate: bradycardic Rhythm: abnormal rhythm GI Palpation: soft and no masses Neuro General: patient alert, patient awake and patient oriented x3 Results Last Vital Signs Temp 36.3 C L 07/13/24 08:50 Pulse 55 L 07/13/24 08:50 Resp 16 07/13/24 08:50 BP 118/69 07/13/24 08:50 Pulse Ox 97 07/13/24 08:50 Time Spent Time spent with Patient: <40 minutes Time was spent: other
[2024-07-13] MEDS: ceFAZolin 2 GM/50 ML BAG IVPB (10:47)
[2024-07-13] MEDS: Lidocaine 2% Jelly 11 ML SYR (11:11)
--- NOTE | 2024-07-13 11:25 | BLADDER_PTH ---
PATIENT: Joo Bradley LOC: [facility] U#:[id number] AGE/SX: 78/M ROOM: RE07/13/[address]: Jona Barker MD : 1945 BED: DIS: 07/13/2024 SPEC #: [id number] RECD: 07/13/24 13:07 STATUS: HARRIS REQ #: [id number] VINICIO: 07/13/24 11:[address]: Jona Barker DEPT: Surgical Specimen RECD BY: Marleni Zuinga ENTERED: 07/13/24 13:07 SP TYPE: Bladder OTHR DR: Sohail Tan Tissues: 1 - BLADDER BIOPSY Procedures: IMMUNOPEROXIDASE STAIN GROSS AND MICRO LEVEL 5 Comments: [id number]
--- NOTE | 2024-07-13 11:35 | W.PM.DSUDISC ---
Date of service: 07/13/24 Time of Service: 11:40 Discharge Plan Disposition Patient Disposition: Home Condition: Stable Discharge Details Reason For Visit: bladder tumor Attending Provider: Jona Barker Primary Care Provider: Sohail Tan Home Meds and New Rx's Prescriptions: No Action prazosin [Minipress] 2 mg capsule 3 mg PO QHS sertraline 100 MG tablet 200 mg PO DAILY triamcinolone acetonide 15 GM cream 15 gm Topical PRN PRN trazodone 150 MG tablet 150 mg PO HS Rx Instructions: take 1 and 1/2 tablets every day ascorbic acid (vitamin C) [Vitamin C] 500 MG capsule, extended release 500 mg PO DAILY multivitamin 1 EACH capsule 1 ea PO DAILY cholecalciferol (vitamin D3) [Vitamin D3] 400 UNIT capsule 400 unit PO DAILY vitamin E succinate 100 UNIT tablet 100 unit PO DAILY ammonium lactate 12 % cream 1 applic TP BID calcium carbonate [Calcium 600] 600 mg calcium (1,500 mg) tablet 600 mg PO DAILY ciclopirox 8 % solution 1 applic TP QHS econazole 1 % cream 1 applic TP BID Jublia 10 % solution with applicator 1 applic TP DAILY vitamin [id number] acid 500-400 mcg tablet 1 tab PO DAILY cyclobenzaprine 5 mg tablet 5 mg PO QHS dextroamphetamine-amphetamine 10 mg capsule,extended release 24hr 10 mg PO DAILY gabapentin 400 mg capsule 400 mg PO TID sildenafil 50 mg tablet 50 mg PO DAILY PRN Rx Instructions: administer 30 minutes to 4 hours before activity ferrous sulfate [Iron (ferrous sulfate)] 325 mg (65 mg iron) Tablet 325 mg PO DAILY acetaminophen 500 mg Tablet 1,000 mg PO Q6H PRN Discharge Instructions Additional Instructions: lugo catheter to drainage (either leg bag or large drainage bag) followup early next week for catheter removal followup 1 to 2 weeks to review surgical pathology Discharge Orders Discharge Orders: Discharge Order (Routine); Ordered 07/13/24 Ordered By: Jona Barker DS: Diagnosis Discharge Diagnosis (1) Bladder cancer: Status: Acute
[2024-07-13 11:40] VITALS: BP 102/55; PULSE 42; RESP 18; TEMP 36.3; O2SAT 93
--- NOTE | 2024-07-13 11:41 | ROE_ITS ---
Date of service: 07/13/24 Time of Service: 11:41 Operative Note Operative Note DATE OF PROCEDURE: 07/13/24 PRE-OP DIAGNOSIS: Bladder cancer POST-OP DIAGNOSIS: same PROCEDURE: cystoscopy with TUR Bladder tumor (2 to 5 cm) SURGEON: Jona Barker ANESTHESIA TYPE: Local By Surgeon and General:No Airway Refer to Anesthesia Record ESTIMATED BLOOD LOSS: 5 PATHOLOGY: other (bladder tumor) COMPLICATIONS: None Patient was transported to: same day Patient's condition: stable Implants: 20 Turkmen lugo with 10 cc sterile water in balloon Indications: This is a 78-year-old gentleman who has a history of high-grade urothelial cell carcinoma that was noninvasive. He was treated with transurethral resection followed by an induction series of intravesical BCG. He has had no evidence of recurrence until his most recent surveillance cystoscopy. We found a papillary lesion on the posterior bladder wall along with more nodular appearing tissue at the bladder neck. He presents now for cystoscopy with transurethral resection of these areas. Findings: small papillary lesion posterior bladder wall nodular area at bladder neck with extension up to right ureteral orifice Procedure Description: The patient was given preoperative antibiotics and brought to the operating room on 07/13/2024. After successful induction of general anesthesia, he was placed in the dorsal lithotomy position. His genitalia was prepped and draped. 2% Xylocaine jelly was instilled into the urethra to act as a local anesthetic. A 22 Turkmen rigid cystoscope was passed through the urethra into the bladder. The urethra and bladder were inspected with the 30 degree lens. On the posterior bladder wall, just to the left of midline, there was a small papillary lesion. Out toward the bladder neck and extending up to the right ureteral orifice there was more nodular tissue. The tissue extended toward the left ureteral orifice but did not completely encircle it. The tissue extended back to the prostatic urethra. I removed the cystoscope and passed a 24 Turk[employer] resectoscope sheath through the urethra into the bladder. I performed transurethral resection of both the small papillary lesion in the larger nodular lesion using bipolar cautery and an [employer] resectoscope. The papillary lesion was completely resected but the more nodular lesion was not. The resection was carried up toward the right ureteral orifice but I did not cauterize the tissue in this area. All resected tissue was evacuated and sent to pathology for permanent section. The size of the nodular lesion was estimated to be between 2 and 5 cm in largest dimension. I then filled the bladder with irrigant and removed the resectoscope. I passed a 20 Turkmen Lugo catheter through the urethra into the bladder. The catheter balloon was inflated with 10 cc of sterile water and the catheter was hooked to gravity drainage. I then did a digital rectal exam and there was firmness up toward the right prostate base near the region of the right seminal vesicle. I did not appreciate any fixation of the bladder to the pelvic wall. The patient tolerated the procedure well with no complications.
[2024-07-13 12:14] VITALS: BP 124/67; PULSE 55; RESP 18; TEMP 36.5; O2SAT 98
--- NOTE | 2024-07-13 12:28 | W.ANESPOSTOP ---
Postoperative Evaluation Date, Time and Location Date Performed: 07/13/24 Time Performed: 12:28 Patient Location: Day Surgery Unit Vital Signs Most Recent Imported Vital Signs: Most Recent Vital Signs Temp Pulse Resp BP Pulse Ox 36.5 C 55 L 18 124/67 98 07/13/24 12:14 07/13/24 12:14 07/13/24 12:14 07/13/24 12:14 07/13/24 12:14 Pain Score Most Recent Pain Score: Most Recent Pain Score Pain Level 0 07/13/24 12:14 Assessment Mental Status: Awake (Alert & Oriented to Patient Baseline) Airway and Respiratory Function: Patent airway with normal (patient baseline) respiratory exam Cardiovascular Function: Hemodynamically Stable Hydration Status: Adequately Hydrated Nausea & Vomiting: No Nausea or Vomiting Pain: Pt. Denies Any Pain Peripheral Nerve Block: Patient did not receive a nerve block
== END 2024-07-13 13:15 | disposition home or self-care (01) ==
PROVIDERS: PCP Nurse Practitioner Acute Care; Visit Provider Urology
PROC: 0TBB8ZZ Excision of Bladder, Via Natural or Artificial Opening Endoscopic (ICD-10-PCS; CPT 52235; principal; 2024-07-13 10:15)
DX: C67.8 Malignant neoplasm of overlapping sites of bladder (principal); I10 Essential (primary) hypertension; F17.210 Nicotine dependence, cigarettes, uncomplicated; E78.1 Pure hyperglyceridemia; C61 Malignant neoplasm of prostate
CPT/HCPCS: 52235; 88305; 88307; 88361; J0690; J1885; J2001; J2405; J2704

== ENCOUNTER 2024-07-14 08:24 | Observation (INO) | payer MEDICARE, SELFPAY ==
[2024-07-14] VITALS (23 sets, daily range): BP systolic 105–176; BP diastolic 48–87; PULSE 50–94; RESP 14–18; TEMP 37–37.3; O2SAT 94–97
--- NOTE | 2024-07-14 09:04 | ED.GENADUL_ITS ---
Discharge Plan Disposition Patient Disposition: Admit to [facility] Condition: Stable Discharge Details Chief Complaint: Urinary Clinical Impression: Clot retention of urine Admit Date/Time: 07/14/24 11:40 Admit Provider: Jona Barker Attending Provider: Jona Barker Primary Care Provider: Sohail Tan ED Provider: Anastasia Todd General Date/Time Provider Initiated Documentation: 07/14/24 08:29 . Limitations to Documentation: no limitations . Information obtained by: patient, family, RN notes reviewed and old records reviewed . History of Present Illness 78 year old M presents to the emergency department with the chief complaint of Hematuria, catheter dysfunction, described as moderate and similar to prior episodes, Quality is described as aching, Patient started experiencing this day(s) (1) and it has been constant. other things that improve symptom(s), (Symptoms improved flushing when at outside hospital) Other factors that worsen symptoms (Surgical intervention yesterday) . Patient notes no other symptoms.. Patient did receive the following treatments prior to arrival, none Related Data Home Medications ?Medication ?Instructions ?Recorded ?Confirmed Vitamin C 500 mg capsule,extended 500 mg PO DAILY 04/06/17 07/14/24 release (ascorbic acid (vitamin C)) Vitamin D3 10 mcg (400 unit) 400 unit PO DAILY 04/06/17 07/14/24 capsule (cholecalciferol (vitamin D3)) multivitamin 1 ea PO DAILY 04/06/17 07/14/24 sertraline 100 mg tablet 200 mg PO DAILY 04/06/17 07/14/24 trazodone 150 mg tablet 150 mg PO HS 04/06/17 07/14/24 triamcinolone acetonide 0.1 % 15 gm topical PRN PRN 04/06/17 07/14/24 topical cream vitamin E succinate 67 mg (100 100 unit PO DAILY 04/06/17 07/14/24 unit) tablet ammonium lactate 12 % topical cream 1 applic topical BID 12/20/19 07/14/24 calcium carbonate (Calcium 600) 600 mg PO DAILY 12/20/19 07/14/24 ciclopirox 8 % topical solution 1 applic topical QHS 12/20/19 07/14/24 econazole 1 % topical cream 1 applic topical BID 12/20/19 07/14/24 vitamin B12 500 mcg-folic acid 400 1 tab PO DAILY 12/20/19 07/14/24 mcg tablet prazosin 2 mg capsule (Minipress) 3 mg PO QHS 01/22/20 07/14/24 acetaminophen 500 mg tablet 1,000 mg PO Q6H PRN 02/27/21 07/14/24 ferrous sulfate 325 mg (65 mg 325 mg PO DAILY 02/27/21 07/14/24 iron) tablet (Iron (ferrous sulfate)) cyclobenzaprine 5 mg tablet 5 mg PO QHS 07/22/23 07/14/24 gabapentin 400 mg capsule See Rx Instructions PO TID 07/22/23 07/14/24 sildenafil 50 mg tablet 50 mg PO DAILY PRN 07/22/23 07/14/24 Allergies Allergy/AdvReac Type Severity Reaction Status Date / Time No Known Allergies Allergy Verified 07/13/24 09:50 General Stated Complaint: Urinary JACKY: 3 Review of Systems Constitutional Constitutional: Reports as per HPI, Denies chills, Denies fever(s) and Denies poor appetite Cardiovascular Cardiovascular: Denies chest pain Respiratory Respiratory: Denies cough Gastrointestinal Gastrointestinal: Denies abdominal pain, Denies change in bowel habits, Denies nausea and Denies vomiting Genitourinary Genitourinary: Reports as per HPI Musculoskeletal Musculoskeletal: Reports as per HPI and Denies back pain Integumentary/Breasts Skin/Breast: Reports as per HPI and Denies rash Exam Const General: cooperative, healthy appearing, comfortable, no acute distress, well developed and well groomed Nutritional Appearance: average body habitus and well nourished Orientation: alert and awake Resp Effort & Inspection: normal respiratory effort and no respiratory distress Auscultation: clear to auscultation bilaterally, no rales, no rhonchi and no wheezes Cardio Rate: regular rate Rhythm: regular rhythm Heart Sounds: S1 normal and S2 normal Back/Spine/Pelvis Back: no CVA tenderness Skin General skin exam: no rashes or lesions noted Trauma: no lacerations or abrasions Neuro General: patient alert and patient awake Cognition: normal cognition Speech: speech normal Course Vital Signs Vital signs: Vital Signs Temperature 37.0 C 07/14/24 08:29 Pulse 76 07/14/24 08:29 Respiratory Rate 14 07/14/24 08:29 Blood Pressure 176/63 H 07/14/24 08:29 Pulse Oximetry 97 07/14/24 08:29 Temperature 37.0 C 07/14/24 08:29 Temperature Source Temporal Artery Scan 07/14/24 08:29 Pulse 76 07/14/24 08:29 Respiratory Rate 14 07/14/24 08:29 Blood Pressure 176/63 H 07/14/24 08:29 Pulse Oximetry 97 07/14/24 08:29 Pain Level 10 07/14/24 08:29 Medical Decision Making Patient is a pleasant 78-year-old male, companied by his significant other, presenting today with chief complaint of clots in his urine, causing obstruction of the catheter. He reports he had surgery yesterday with Dr. Barker. Was seen at [facility] last night where they were able to irrigate the bladder and assist with helping with urinary flow. However, he reports that he feels like it is obstructed once again. He states that he now has urine mixed with blood coming around to the catheter. He is not passing clots around the catheter. He is otherwise feeling well. He does report some back pain but associates this with laying in the stretcher last night at outside hospital. Patient is not on any anticoagulation. No chest pain, fevers, shortness of breath. On exam, patient appears nontoxic. He is hemodynamically stable. Some bloodstain is not noted on his hospital pants. Will flush out the catheter. Also contact Dr. Barker. History of bladder cancer. Reviewed note from yesterday surgery. Per Dr. Barker, patient has a history of high-grade urothelial cell carcinoma that is noninvasive. He historically did have a transurethral resection as well as intravesical BCG. Papillary lesion on the posterior bladder wall was found on recent surveillance cystoscopy prompting surgery that was performed yesterday. Papillary lesion was resected using cautery. Size of lesion removed was between [address] Barker is currently in the operating room, will requested he evaluate the patient after his current case. Of note, patient did go to their office initially for evaluation and Reporting that he was having a infection but in reality it sounds like this was more clots and he was using long-term per patient and report. Spoke with Dr. Barker, he advised that the area the tumor resection was near the necka nd would be high likelihood to spasm which could also be part of the issue, he will come to assess the patient. Dr. Barker at bedside, he flushed catheter. Wants to see if clots reform. If they do, will admit. If not, will d/c to home with antispasmotic. H&H are stable. Creatinine within normal limits. Patient was reevaluated by Dr. Barker, Dr. Barker feels that inpatient management is appropriate and will admit the patient to continue to flush his bladder. Patient admitted in stable condition under Dr. Barker's care. Quality:SDOH Health Related Social Needs: No Data to Display PFSH All Active Problems (Updated 07/14/24 @ 16:31 by CHERRIE Schrader) Clot retention of urine (Acute) Bladder cancer (Acute) BPH w urinary obs/LUTS (Acute) Prostate nodule (Acute) Erectile dysfunction (Acute) Medical History (Updated 07/14/24 @ 16:31 by CHERRIE Schrader) Osteoporosis Arthritis Gynecomastia Vascular disorder Irregular heart beat Essential hypertension Hypertriglyceridemia Smoker Varicose veins of left lower extremity Depression Anxiety Chronic pain Low back pain Surgical History S/P bladder tumor excision with fulguration Vein Stripping Vasectomy Replacement of total knee joint Rotator Cuff Repair Quadracepsplasty Hernia repair Arthroplasty of knee Family History Other ASCVD (arteriosclerotic cardiovascular disease) Bladder cancer Lung cancer Myocardial infarction Social History Smoking/Tobacco Use Status: Former Tobacco Use Quit Date: 11/29/96 Smoking risk assessment performed?: Yes Alcohol Intake: never Drug use: Never Substance use type: does not use Housing: house Current gender identity: male Additional Social history: UTAP
[2024-07-14 10:31] LABS: HCT 37.4 % (40.0-50.0); HGB 12.6 g/dL (13.5-17.5); MCH 32.1 pg (27.0-33.0); MCHC 33.7 % (32.0-36.0); MCV 95 fL (80-95); MPV 9.8 fL (8.0-11.0); Platelet Count 154 10^3/uL (130-400); RBC 3.93 10^6/uL (4.36-5.78); RDW 13.2 % (11.8-14.1); RDW-SD 46.2 fL; WBC 9.15 10^3/uL (4.4-10.8)
[2024-07-14 11:00] LABS: ALT 28 U/L (16-63); AST 26 U/L (15-37); Alkaline Phosphatase 79 U/L (46-116); BUN 32 mg/dL (7-18); Bilirubin, Total 0.72 mg/dL (0.2-1.0); CREATININE 1.3 mg/dL (0.70-1.30); Calcium 9.4 mg/dL (8.5-10.1); Chloride 103 mmol/L (98-107); Estimated GFR 56.58 (mL/min/1.73m2); Glucose 129 mg/dL (74-106); Potassium 4.3 mmol/L (3.5-5.1); Sodium 140 mmol/L (136-145); Total Protein 7.6 g/dL (6.4-8.2)
--- NOTE | 2024-07-14 11:51 | W.PM.HP.N ---
Date of service: 07/14/24 Time of Service: 11:51 Assessment and Plan Assessment and plan (1) Clot retention of urine: Status: Acute (2) Bladder cancer: Status: Acute Assessment and plan: With his blood count and his response to hand irrigation of the catheter, I doubt that he is actively bleeding so I do not think he needs to go back to the operating room. We will plan to keep him here in the hospital overnight with bladder irrigation to help ensure new clots do not form. I will use anticholinergics to help with bladder spasms. History of Present Illness History of Present Illness Chief Complaint: Clot retention Narrative: This is a 78-year-old gentleman who has a history of high-grade, noninvasive urothelial cell carcinoma of the bladder. He underwent a transurethral resection of a bladder tumor that was located at the bladder neck and trigone area. We did not see active bleeding at the completion of the surgery, so we placed a Pereyra catheter but did not begin bladder irrigation. He was discharged with his catheter hooked to gravity drainage. About an hour after discharge, he noticed some blood in the drainage bag. Later that day, he noticed suprapubic pain with no drainage from the catheter. He was leaking urine and clots around the catheter. He presented to an outside hospital where his catheter was changed and continuous bladder irrigation was run through the night. He then came back to our facility for evaluation. He initially presented up to my office, but I was in the operating room, so he presented down to the emergency department. He has been complaining of some low back pain and nausea, but he believes the back pain is related to lying in bed all night. He is not really having any flank pain. He is not having any fevers or chills Review of Systems Narrative: No fevers or chills No vision change or dysphasia No diabetes or thyroid dysfunction No shortness of breath, cough or hemoptysis No chest pain or palpitations Having diarrhea several times last evening. Nausea. No hepatitis, ulcers, jaundice No seizures, strokes No bleeding disorders or anemia Neck pain. No gout PFSH All Active Problems (Updated 07/14/24 @ 11:57 by Jona Barker MD) Clot retention of urine (Acute) Bladder cancer (Acute) BPH w urinary obs/LUTS (Acute) Prostate nodule (Acute) Erectile dysfunction (Acute) Medical History (Updated 07/14/24 @ 11:57 by Jona Barker MD) Osteoporosis Arthritis Gynecomastia Vascular disorder Irregular heart beat Essential hypertension Hypertriglyceridemia Smoker Varicose veins of left lower extremity Depression Anxiety Chronic pain Low back pain Surgical History S/P bladder tumor excision with fulguration Vein Stripping Vasectomy Replacement of total knee joint Rotator Cuff Repair Quadracepsplasty Hernia repair Arthroplasty of knee Family History Other ASCVD (arteriosclerotic cardiovascular disease) Bladder cancer Lung cancer Myocardial infarction Social History Smoking/Tobacco Use Status: Former Tobacco Use Quit Date: 11/29/96 Smoking risk assessment performed?: Yes Alcohol Intake: never Drug use: Never Substance use type: does not use Housing: house Current gender identity: male Additional Social history: UTAP Meds Allergies and Home Medications Allergies Allergy/AdvReac Type Severity Reaction Status Date / Time No Known Allergies Allergy Verified 07/13/24 09:50 Home Medications ?Medication ?Instructions ?Recorded ?Confirmed ?Type Vitamin C 500 mg capsule,extended 500 mg PO DAILY 04/06/17 07/13/24 History release (ascorbic acid (vitamin C)) Vitamin D3 10 mcg (400 unit) 400 unit PO DAILY 04/06/17 07/13/24 History capsule (cholecalciferol (vitamin D3)) multivitamin 1 ea PO DAILY 04/06/17 07/13/24 History sertraline 100 mg tablet 200 mg PO DAILY 04/06/17 07/13/24 History trazodone 150 mg tablet 150 mg PO HS 04/06/17 07/13/24 History triamcinolone acetonide 0.1 % 15 gm topical PRN PRN 04/06/17 07/13/24 History topical cream vitamin E succinate 67 mg (100 100 unit PO DAILY 04/06/17 07/13/24 History unit) tablet ammonium lactate 12 % topical cream 1 applic topical BID 12/20/19 07/13/24 History calcium carbonate (Calcium 600) 600 mg PO DAILY 12/20/19 07/13/24 History ciclopirox 8 % topical solution 1 applic topical QHS 12/20/19 07/13/24 History econazole 1 % topical cream 1 applic topical BID 12/20/19 07/13/24 History efinaconazole 10 % topical 1 applic topical DAILY 12/20/19 07/13/24 History solution with applicator (Jublia) vitamin B12 500 mcg-folic acid 400 1 tab PO DAILY 12/20/19 07/12/24 History mcg tablet prazosin 2 mg capsule (Minipress) 3 mg PO QHS 01/22/20 07/13/24 History acetaminophen 500 mg tablet 1,000 mg PO Q6H PRN 02/27/21 07/13/24 History ferrous sulfate 325 mg (65 mg 325 mg PO DAILY 02/27/21 07/13/24 History iron) tablet (Iron (ferrous sulfate)) cyclobenzaprine 5 mg tablet 5 mg PO QHS 07/22/23 07/13/24 History dextroamphetamine-amphetamine ER 10 mg PO DAILY 07/22/23 07/13/24 History 10 mg 24hr capsule,extend release gabapentin 400 mg capsule 400 mg PO TID 07/22/23 07/13/24 History sildenafil 50 mg tablet 50 mg PO DAILY PRN 07/22/23 07/13/24 History Exam Narrative Exam Narrative: He does not appear septic or toxic His vital signs are documented elsewhere His chest wall motion is normal. He is not short of breath at rest. His abdomen shows some tenderness in the right lower quadrant but there is no peritoneal signs. There is no CVA tenderness There is an irrigating catheter in place. I hand irrigated the catheter multiple times and removed clots from the bladder. The irrigant then became transparent. During the irrigation, the patient developed bladder spasms with leakage around the catheter He is awake and alert Results Labs 07/14/24 10:20 07/14/24 10:20 Labs: Laboratory Results - last 24 hr 07/14/24 10:20 WBC 9.15 RBC 3.93 L Hgb 12.6 L Hct 37.4 L MCV 95 MCH 32.1 MCHC 33.7 RDW 13.2 Plt Count 154 MPV 9.8 Sodium 140 Potassium 4.3 Chloride 103 BUN 32 H Creatinine 1.3 Est GFR (CKD-EPI 2020) 56.58 Glucose 129 H Calcium 9.4 Total Bilirubin 0.72 AST 26 ALT 28 Alkaline Phosphatase 79 Total Protein 7.6 Albumin 4.0 ABO/Rh O Positive Antibody Screen NEGATIVE Last Vital Signs Temp 37.0 C 07/14/24 08:29 Pulse 50 L 07/14/24 10:16 Resp 14 07/14/24 08:29 BP 149/87 H 07/14/24 10:31 Pulse Ox 97 07/14/24 10:31 Time Spent Time spent with Patient: 40-54 minutes Time was spent: preparing to see the patient(eg.review tests), referring, communicating with other health lawn care technician, indepentently interpreting results, counseling the patient and care coordination
[2024-07-14 12:14] LABS: CO2 25.8 mmol/L (21.0-32.0)
[2024-07-14 12:17] LABS: Anion Gap 11.2 mmol/L (3-11)
[2024-07-14] MEDS: Oxybutynin 5 MG TAB PO ×3 (13:42→19:51)
--- NOTE | 2024-07-14 13:58 | TELEP.MEDREC ---
Date of service: 07/14/24 Time of Service: 13:58 Telepharmacy Home Med Rec Allergies Allergies: No Known Allergies Allergy (Verified 07/13/24 09:50) Interview Person Interviewed: Patient Quality Quality of Interview/Accuracy of Medication List: Fair ([facility] obtains [facility] which do not reflect on Surescripts) Sources Sources used to compile medication list: [email or web address] Medication List and Patient List Changes made to Home Medication List: ADDITIONS: None DELETIONS: Ammonium Lactate Ciclopirox Econazole CHANGES: Gabapentin to 400mg AM, 400mg noon, and 800mg at HS Additional Notes Additional Notes: Unable to verify medications with third [employer] payor due to [facility] med[facility]. Med list per pt interview. Pt states last medications were taken Wednesday07/12/24. Recommended Changes Attestation: The home medication list is now updated to the best of my knowledge and is ready to be reconciled by the provider. Please contact the TelePharmacy Medication Reconciliation Pharmacist at for any questions.
--- NOTE | 2024-07-14 14:32 | W.PC.ACHO ---
Registration Status: Primary Language: Preferred Language: ED Information & Data Chief Complaint Urinary 07/14/24 10:46 Chief Complaint Urinary 07/14/24 09:08 Triage Note Pt had bladder surgery here 07/14/24 08:29 yesterday and sent home, went to [facility] [place] yesterday after the surgery and they irrigated his bladder at 0645 and instructed him to come here and see his surgeon. He attempted to contact Dr Barker with no luck so come to ER- urinary catheter is getting clogged with clots Medical / Surgical History (Last Reviewed 07/13/24 @ 08:51 by Mery Castro, RN) Osteoporosis Arthritis Gynecomastia Vascular disorder Irregular heart beat Essential hypertension Hypertriglyceridemia Smoker Varicose veins of left lower extremity Depression Anxiety Chronic pain Low back pain (Last Reviewed 07/13/24 @ 08:51 by Mery Castro, RN) S/P bladder tumor excision with fulguration Vein Stripping Vasectomy Replacement of total knee joint Rotator Cuff Repair Quadracepsplasty Hernia repair Arthroplasty of knee Most Recent Vital Signs Temperature 37.0 C 07/14/24 13:05 Temperature Source Temporal Artery Scan 07/14/24 13:05 Pulse 71 07/14/24 13:05 Pulse Rhythm Regular 07/14/24 13:05 Respiratory Rate 18 07/14/24 13:05 Respiratory Effort Normal 07/14/24 13:05 Respiratory Depth Normal 07/14/24 13:05 Respiratory Pattern Normal 07/14/24 13:05 Blood Pressure 123/75 07/14/24 13:05 Blood Pressure Mean 81 07/14/24 12:46 Pulse Oximetry 96 07/14/24 13:05 Oxygen Delivery Method Room Air 07/14/24 13:05 Oxygen Flow Rate 0 07/14/24 13:05 Pain Level 0 07/14/24 13:05 Allergies No Known Allergies Allergy (Verified 07/13/24 09:50) Precautions Isolation Standard precaution 07/14/24 10:46 Active Medications Generic Name Dose Route Start Last Admin Trade Name Freq PRN Reason Stop Dose Admin Oxybutynin Chloride 5 mg 07/14/24 13:03 07/14/24 13:42 Oxybutynin 5 Mg Tab PO 5 mg QID MIRIAM Administration IV IV Catheter Type [Right Saline Lock Antecubital] IV Catheter Gauge [Right 18 Antecubital] Diet Orders Category Date Time Status Regular/Normal [DIET] Nutrition 07/14/24 Lunch Active Diagnostics 07/14/24 Range/Units 10:20 WBC 9.15 (4.4-10.8) 10^3/uL RBC 3.93 L (4.36-5.78) 10^6/uL Hgb 12.6 L (13.5-17.5) g/dL Hct 37.4 L (40.0-50.0) % MCV 95 (80-95) fL MCH 32.1 (27.0-33.0) pg MCHC 33.7 (32.0-36.0) % RDW 13.2 (11.8-14.1) % Plt Count 154 (130-400) 10^3/uL MPV 9.8 (8.0-11.0) fL Sodium 140 (136-145) mmol/L Potassium 4.3 (3.5-5.1) mmol/L Chloride 103 (98-107) mmol/L Carbon Dioxide 25.8 (21.0-32.0) mmol/L Anion Gap 11.2 H (3-11) mmol/L BUN 32 H (7-18) mg/dL Creatinine 1.3 (0.70-1.30) mg/dL Est GFR (CKD-EPI 2020) 56.58 (mL/min/1.73m2) Glucose 129 H (74-106) mg/dL Calcium 9.4 (8.5-10.1) mg/dL Total Bilirubin 0.72 (0.2-1.0) mg/dL AST 26 (15-37) U/L ALT 28 (16-63) U/L Alkaline Phosphatase 79 (46-116) U/L Total Protein 7.6 (6.4-8.2) g/dL Albumin 4.0 (3.4-5.0) g/dL ABO/Rh O Positive Antibody Screen NEGATIVE Intake and Output - 24 Hour Total 07/14/24 08:24 thru 07/14/24 13:05 Weight 83.9 kg Other: Urine Color Ordoñez Urine Appearance Clots Falls Risk Assessment History of Falls Previous History 07/14/24 13:05 Contributing Factors Unstable 07/14/24 13:05 Ambulatory Aids Uses ambulatory device + 07/14/24 13:05 Tubes/Lines W/no contributing factors 07/14/24 13:05 Gait Evaluation No gait disturbance 07/14/24 13:05 Cognition No cognitive impairment 07/14/24 13:05 Fall Total Score 58 07/14/24 13:05 Level of Risk High Risk 07/14/24 13:05 Problems (Last Reviewed 07/13/24 @ 08:51 by Mery Castro RN) Clot retention of urine (Acute) Bladder cancer (Acute) v v v v v v v v v Sending and/or Receiving Nurses: Please use comment section below to note any information pertinent to the patient hand-off not included above. Information / Comments: Report received from: Evelyn Novak RN
[2024-07-14] MEDS: Gabapentin 400 MG CAP PO (14:51)
[2024-07-14] MEDS: Normal Saline Flush 10 ML SYR (16:47)
[2024-07-14] MEDS: Lactated Ringers 1,000 ML 100 ML IV (16:49)
[2024-07-14] MEDS: Gabapentin 400 MG CAP 800 MG PO (19:51)
[2024-07-14] MEDS: traZODone 50 MG TAB 150 MG PO (19:52)
[2024-07-15] MEDS: traMADol 50 MG TAB PO (00:03)
[2024-07-15] MEDS: Ondansetron 4 MG/2 ML VIAL IVP (00:03)
[2024-07-15] MEDS: Lactated Ringers 1,000 ML 100 ML IV (02:15)
--- NOTE | 2024-07-15 06:42 | PGE_ITS ---
Date of Service Date of service: 07/15/24 Time of Service: 06:42 Assessment and Plan Assessment and plan (1) Clot retention of urine: Status: Acute (2) Bladder cancer: Status: Acute Assessment and plan: There is no evidence of clot retention overnight, so I think we can safely discontinue his bladder irrigation and discharge him to home. I will send home a prescription for oxybutynin that he can use for bladder spasms. He already has a follow-up appointment to see us on Wednesday to have the catheter removed. Subjective Subjective Interval history since last seen: He had a comfortable night with no episodes of clot retention. He did have some nausea and his chronic back pain. He is able to tolerate oral nutrition and medications Exam Narrative Exam Narrative: He is sleeping but awakes easily His vital signs are documented elsewhere The urine output is clear with a slow CBI He is awake and alert Objective Last Vital Signs Temp 37.2 C 07/14/24 23:14 Pulse 67 07/14/24 23:14 Resp 18 07/14/24 23:14 BP 111/48 L 07/14/24 23:14 Pulse Ox 96 07/14/24 23:14 Laboratory Results - last 24 hr 07/14/24 10:20 WBC 9.15 RBC 3.93 L Hgb 12.6 L Hct 37.4 L MCV 95 MCH 32.1 MCHC 33.7 RDW 13.2 Plt Count 154 MPV 9.8 Sodium 140 Potassium 4.3 Chloride 103 Carbon Dioxide 25.8 Anion Gap 11.2 H BUN 32 H Creatinine 1.3 Est GFR (CKD-EPI 2020) 56.58 Glucose 129 H Calcium 9.4 Total Bilirubin 0.72 AST 26 ALT 28 Alkaline Phosphatase 79 Total Protein 7.6 Albumin 4.0 ABO/Rh O Positive Antibody Screen NEGATIVE Time Spent with Patient Time Spent with Patient: <25 minutes Time was spent: referring, communicating with other health skin care therapist and counseling the patient
--- NOTE | 2024-07-15 06:45 | W.PM.DS.N ---
Date of service: 07/15/24 Time of Service: 06:45 DS: Diagnosis Discharge Diagnosis (1) Clot retention of urine: (2) Bladder cancer: Status: Acute Discharge Plan Disposition Patient Disposition: Home Condition: Improving Discharge Details Reason For Visit: Clot Retention Admit Date/Time: 07/14/24 11:40 Admit Provider: Jona Barker Attending Provider: Jona Barker Primary Care Provider: Sohail Tan Hospital Course Hospital Course: The patient was seen in the emergency department. I was able to hand irrigate multiple clots from his bladder. We then began continuous bladder irrigation and maintained the irrigation for 24 hours. His hemoglobin was stable and there is no evidence of active bleeding, so he was not taken back to the operating room. By the following morning, his bladder irrigant was clear and he had no episodes of retention overnight. We discontinued his bladder irrigation and will be discharging him home this morning. We will be sending him home with a prescription for oxybutynin for bladder spasms likely caused by his recent TUR bladder tumor. Home Meds and New Rx's Prescriptions: New oxybutynin chloride 5 mg Tablet 5 mg PO QID PRN (Reason: spasm) Qty: 12 0RF No Action prazosin [Minipress] 2 mg capsule 3 mg PO QHS sertraline 100 MG tablet 200 mg PO DAILY triamcinolone acetonide 15 GM cream 15 gm Topical PRN PRN trazodone 150 MG tablet 150 mg PO HS Patient Comments: 150mg at HS Rx Instructions: take 1 and 1/2 tablets every day ascorbic acid (vitamin C) [Vitamin C] 500 MG capsule, extended release 500 mg PO DAILY multivitamin 1 EACH capsule 1 ea PO DAILY cholecalciferol (vitamin D3) [Vitamin D3] 400 UNIT capsule 400 unit PO DAILY vitamin E succinate 100 UNIT tablet 100 unit PO DAILY ammonium lactate 12 % cream 1 applic TP BID calcium carbonate [Calcium 600] 600 mg calcium (1,500 mg) tablet 600 mg PO DAILY ciclopirox 8 % solution 1 applic TP QHS econazole 1 % cream 1 applic TP BID vitamin J00-mafrv acid 500-400 mcg tablet 1 tab PO DAILY cyclobenzaprine 5 mg tablet 5 mg PO QHS gabapentin 400 mg capsule See Rx Instructions PO TID Patient Comments: Pt states taking 400mg in AM, 400mg at noon and 800mg at HS as prescribed Rx Instructions: orally three times a day; sildenafil 50 mg tablet 50 mg PO DAILY PRN Rx Instructions: administer 30 minutes to 4 hours before activity ferrous sulfate [Iron (ferrous sulfate)] 325 mg (65 mg iron) Tablet 325 mg PO DAILY acetaminophen 500 mg Tablet 1,000 mg PO Q6H PRN Discharge Instructions Additional Instructions: Catheter plug to the irrigation port of the Pereyra Leg bag for drainage port of the Pereyra The patient already has a follow-up appointment Wednesday to have his catheter removed in my office, so no additional appointments are needed I have sent 1 additional prescription to the pharmacy for you. The prescription is for her oxybutynin that can be taken every 6 hours as needed for bladder spasms. Bladder spasms are what make you feel like you need to urinate and the urine may come around the catheter when the spasm occurs. Activity:: No lifting over 10 pounds Equipment/Supplies:: Pereyra to leg bag Diet:: As Tolerated Discharge Orders Discharge Orders: Discharge Order (Routine); Ordered 07/15/24 Ordered By: Jona Barker DS: Summary Time Spent with Patient providing and/or coordinating discharge services: Less than 30 minutes Status at Discharge Functional status at discharge: independent ambulation Overall status at discharge: patient is progressing back to baseline Mental Status: mental status grossly normal Speech and Movement: speech and movement normal Mood: congruent mood Affect: normal affect Quality:SDOH Health Related Social Needs: No Data to Display Exam Narrative Exam Narrative: On the morning of discharge, he appears comfortable His vital signs are documented elsewhere His chest wall motion is normal. He is not short of breath at rest. His abdomen is soft with no peritoneal signs His bladder irrigation is clear with the CBI running at a slow rate He is awake and alert Psych Mental Status: mental status grossly normal Speech and Movement: speech and movement normal Mood: congruent mood Affect: normal affect DS: Data Vitals/I&O Vitals and I&O: Vital Signs Temperature 37.2 C 07/14/24 23:14 Temperature Source Temporal Artery Scan 07/14/24 23:14 Pulse 67 07/14/24 23:14 Pulse Rhythm Regular 07/14/24 19:51 Respiratory Rate 18 07/14/24 23:14 Respiratory Effort Normal, Non-Labored 07/15/24 00:03 Respiratory Depth Normal 07/15/24 00:03 Respiratory Pattern Normal 07/15/24 00:03 Blood Pressure 111/48 L 07/14/24 23:14 Blood Pressure Mean 81 07/14/24 12:46 Pulse Oximetry 96 07/14/24 23:14 Oxygen Delivery Method Room Air 07/14/24 23:14 Oxygen Flow Rate 0 07/14/24 23:14 Pain Level 2 07/14/24 14:46 Comment RN Notified 07/14/24 23:14 Intake & Output 07/14/24 07/14/24 07/15/24 11:59 23:59 11:59 Intake Total 240 / 240 943.333 / 943.333 Balance 240 / 240 943.333 / 943.333 Weight 83.915 kg 83.9 kg Intake: IV 943.333 / 943.333 Oral 240 / 240 Other: Urine Color [place] Urine Appearance Hematuria Hematuria Comment Free flowing; no clots noted. Hematuria still present. Patient tolerating well. Flowing freely with minimal small clots noted; patient resting comfortable tolerating well. Data Completed and Pending Labs on day of discharge: Labs from last 24 hours 07/14/24 10:20 WBC 9.15 RBC 3.93 L Hgb 12.6 L Hct 37.4 L MCV 95 MCH 32.1 MCHC 33.7 RDW 13.2 Plt Count 154 MPV 9.8 Sodium 140 Potassium 4.3 Chloride 103 Carbon Dioxide 25.8 Anion Gap 11.2 H BUN 32 H Creatinine 1.3 Est GFR (CKD-EPI 2020) 56.58 Glucose 129 H Calcium 9.4 Total Bilirubin 0.72 AST 26 ALT 28 Alkaline Phosphatase 79 Total Protein 7.6 Albumin 4.0 ABO/Rh O Positive Antibody Screen NEGATIVE PFSH All Active Problems (Updated 07/15/24 @ 06:45 by Jona Barker MD) Bladder cancer (Acute) BPH w urinary obs/LUTS (Acute) Prostate nodule (Acute) Erectile dysfunction (Acute) Medical History (Updated 07/15/24 @ 06:45 by Jona Barker MD) Clot retention of urine Osteoporosis Arthritis Gynecomastia Vascular disorder Irregular heart beat Essential hypertension Hypertriglyceridemia Smoker Varicose veins of left lower extremity Depression Anxiety Chronic pain Low back pain Surgical History S/P bladder tumor excision with fulguration Vein Stripping Vasectomy Replacement of total knee joint Rotator Cuff Repair Quadracepsplasty Hernia repair Arthroplasty of knee Family History Other ASCVD (arteriosclerotic cardiovascular disease) Bladder cancer Lung cancer Myocardial infarction Social History Smoking/Tobacco Use Status: Former Tobacco Use Quit Date: 11/29/96 Smoking risk assessment performed?: Yes Alcohol Intake: never Drug use: Never Substance use type: does not use Housing: house Current gender identity: male Additional Social history: [facility] Time Spent with Patient Time Spent with Patient: <45 minutes Time was spent: obtaining and/or reviewing separately otained hiistory, referring, communicating with other health healthcare economics manager and counseling the patient
--- NOTE | 2024-07-15 07:06 | NUR.NOTE ---
Nursing Note: Per Dr. Barker, 3 way lugo plugged as he was just in to see pt and stopped the CBI.
[2024-07-15] MEDS: Oxybutynin 5 MG TAB PO (07:52)
[2024-07-15] MEDS: Gabapentin 400 MG CAP PO (07:52)
[2024-07-15] MEDS: Sertraline 100 MG TAB 200 MG PO (08:56)
== END 2024-07-15 10:58 | disposition home or self-care (01) ==
LOC: ER 10:09 → MS 13:01
PROVIDERS: Admitting Provider Urology; Emergency Provider Physician Assistant; PCP Nurse Practitioner Acute Care; Visit Provider Urology
DX: R33.8 Other retention of urine; N32.89 Other specified disorders of bladder; C67.8 Malignant neoplasm of overlapping sites of bladder; I10 Essential (primary) hypertension; E78.1 Pure hyperglyceridemia; M54.50 Low back pain, unspecified; G89.29 Other chronic pain; F41.9 Anxiety disorder, unspecified; F32.A Depression, unspecified; M81.0 Age-related osteoporosis without current pathological fracture; Z79.899 Other long term (current) drug therapy; N40.1 Benign prostatic hyperplasia with lower urinary tract symptoms
CPT/HCPCS: 36415; 80053; 85027; 86850; 86900; 86901; 96361; 96374; 99222; 99238; 99285; G0378; J2405

== ENCOUNTER → 2024-07-17 07:49 | Outpatient (BNVA) | payer MEDICARE, SELFPAY | PROVIDERS: PCP Nurse Practitioner Acute Care; Referring Provider Nurse Practitioner Acute Care; Visit Provider Nurse Practitioner Gerontology | DX: C67.9 Malignant neoplasm of bladder, unspecified (principal) ==

== ENCOUNTER → 2024-08-01 14:39 | Outpatient (BNVA) | payer MEDICARE, SELFPAY | PROVIDERS: PCP Nurse Practitioner Acute Care; Referring Provider Nurse Practitioner Acute Care; Visit Provider Urology ==

== ENCOUNTER 2024-08-01 19:28 | Outpatient (CLI) | payer MEDICARE, SELFPAY ==
[2024-08-02 18:11] LABS: PSA, Diagnostic 46.4 ng/mL (<=6.5)
== END 2024-08-01 19:29 | disposition home or self-care (01) ==
LOC: LBO 19:30
PROVIDERS: PCP Nurse Practitioner Acute Care; Visit Provider Urology
DX: C61 Malignant neoplasm of prostate (principal); C67.9 Malignant neoplasm of bladder, unspecified
CPT/HCPCS: 36415; 81003; 99214; 84153

== ENCOUNTER → 2024-09-22 10:27 | Outpatient (BNVA) | payer MEDICARE, SELFPAY | PROVIDERS: PCP Nurse Practitioner Acute Care; Referring Provider Nurse Practitioner Acute Care; Visit Provider Urology | DX: C61 Malignant neoplasm of prostate (principal) | CPT/HCPCS: 96402; 99214; J9155 ==

== ENCOUNTER 2024-11-28 02:15 | Outpatient (CLI) | payer MEDICARE, SELFPAY ==
[2024-11-28 07:41] LABS: Abs Immature Grans 0.05 10^3/uL (0.0-0.06); Absolute Basophil Count 0.04 10^3/uL (0.0-0.2); Absolute Eosinophil Count 0.21 10^3/uL (0.0-0.7); Absolute Lymphocyte Count 1.26 10^3/uL (1.2-3.4); Absolute Monocyte Count 0.41 10^3/uL (0.1-0.8); Absolute Neutrophil Count 2.62 10^3/uL (1.2-6.7); Basophils % 0.9 %; Eosinophils % 4.6 %; HCT 38.2 % (40.0-50.0); HGB 12.6 g/dL (13.5-17.5); Immature Grans % 1.1 %; Lymphocytes % 27.5 %; MCH 31.6 pg (27.0-33.0); MCV 96 fL (80-95); MPV 9.6 fL (8.0-11.0); Monocytes % 8.9 %; Platelet Count 152 10^3/uL (130-400); RBC 3.99 10^6/uL (4.36-5.78); RDW 13.9 % (11.8-14.1); RDW-SD 49.2 fL; WBC 4.59 10^3/uL (4.4-10.8)
[2024-11-28 07:54] LABS: ALT 42 U/L (16-63); AST 36 U/L (15-37); Alkaline Phosphatase 87 U/L (46-116); BUN 28 mg/dL (7-18); Bilirubin, Total 0.52 mg/dL (0.2-1.0); CREATININE 1.1 mg/dL (0.70-1.30); Calcium 9.8 mg/dL (8.5-10.1); Chloride 107 mmol/L (98-107); Estimated GFR 68.71 (mL/min/1.73m2); Glucose 103 mg/dL (74-106); Potassium 4.6 mmol/L (3.5-5.1); Sodium 145 mmol/L (136-145); Total Protein 7.6 g/dL (6.4-8.2)
[2024-11-30 14:37] LABS: PSA, Ultrasensitive 0.84 ng/mL (<= 6.5)
[2024-12-01 11:05] LABS: Testosterone, Total <7.0 ng/dL (240-950)
== END 2024-11-28 02:16 | disposition home or self-care (01) ==
LOC: LBO 02:17
PROVIDERS: PCP Nurse Practitioner Acute Care; Visit Provider Internal Medicine
DX: C61 Malignant neoplasm of prostate (principal); C79.51 Secondary malignant neoplasm of bone
CPT/HCPCS: 36415; 80053; 84153; 84403; 85025

== ENCOUNTER → 2025-05-18 10:36 | Outpatient (BNVA) | payer MEDICARE, SELFPAY | PROVIDERS: PCP Nurse Practitioner Acute Care; Referring Provider Nurse Practitioner Acute Care; Visit Provider Urology | DX: C67.9 Malignant neoplasm of bladder, unspecified (principal); C61 Malignant neoplasm of prostate | CPT/HCPCS: 99213 ==

== ENCOUNTER → 2025-06-08 10:44 | Outpatient (BNVA) | payer MEDICARE, SELFPAY | PROVIDERS: PCP Nurse Practitioner Acute Care; Referring Provider Nurse Practitioner Acute Care; Visit Provider Urology | DX: C67.9 Malignant neoplasm of bladder, unspecified (principal); C61 Malignant neoplasm of prostate; N13.8 Other obstructive and reflux uropathy; N40.1 Benign prostatic hyperplasia with lower urinary tract symptoms; N40.3 Nodular prostate with lower urinary tract symptoms | CPT/HCPCS: 52000 ==